=== PATIENT | male | born 1995 | race African-American/Black ===

== ENCOUNTER 2018-03-10 11:49 | Emergency (ER) | payer MEDICAID ==
[~2018-03-10] VITALS: Ht 188 cm; Wt 120.0 kg
[2018-03-10 11:51] VITALS: BP 116/56; PULSE 54; RESP 18; TEMP 98.7; O2SAT 99
[2018-03-10] MEDS ORDERED: PRED20 PO (13:15)
[2018-03-10] MEDS ORDERED: VIST50CA PO (13:15)
--- NOTE | 2018-03-10 13:23 | PD ---
HPI Chief Complaint: Skin Problem Time Seen by Provider: 12:13 (Mackenzie Ferrer) Time Seen by Provider: 12:13 (Jumana Williamson MD) Travel History International Travel<30 days: No Contact w/Intl Traveler<30days: No Traveled to known affect area: No (Mackenzie Ferrer) History of Present Illness HPI 22 year-old male presents to the emergency room for evaluation of itchy rash to his bilateral elbows, legs, groin for the past 5 days. Patient does not remember what brought the symptoms on. He has not applied anything to the area. No recent new environmental, food, or medication exposures. He also reports painful lesions inside of his mouth and around his lips. He reports something similar as a child but does not remember what it was. He went to an urgent care yesterday and they recommended he go to a plastic surgery assistant. (Mackenzie Ferrer) PFSH Social History Tobacco Use: No (Mackenzie Ferrer) Allergies-Medications (Allergen,Severity, Reaction): Coded Allergies: No Known Allergies (Unverified , 03/10/18) Reported Meds & Prescriptions Reported Meds & Active Scripts Active Magic Mouthwash Pediatric/Adult Liq (Lidocaine/Diphenhydr/Alum/Mg/Simeth) 60 Ml Susp 5 Ml SWISH-SWAL ACHS Each 5mL contains: Diphenydramine 4.5mg, Viscous Lidocaine 2% 10mg, Maalox Advanced Regular Strength 2.7ml Vistaril (Hydroxyzine Pamoate) 50 Mg Cap 50 Mg PO TID PRN Prednisone 20 Mg Tab 40 Mg PO DAILY Take 40 mg (2 tablets) daily for 5 days (Jumana Williamson MD) Review of Systems Except as stated in HPI: all other systems reviewed are Neg (Mackenzie Ferrer) Physical Exam Narrative GENERAL: Well-nourished, well-developed male in no acute distress. Afebrile. Ambulatory. SKIN: Focused skin assessment warm/dry. Multiple less than 1 cm skin colored circular, slightly raised lesions to bilateral elbows, bilateral thighs, groin, and inside the mouth. HEAD: Normocephalic. EYES: No scleral icterus. No injection or drainage. NECK: Supple, trachea midline. No JVD or lymphadenopathy. CARDIOVASCULAR: Regular rate and rhythm without murmurs, gallops, or rubs. RESPIRATORY: Breath sounds equal bilaterally. No accessory muscle use. PSYCHIATRIC: No delusional thought processes. No hallucinations. GENITOURINARY: Uncircumcised. Testes descended bilaterally without evidence of rotation. No urethral discharge. Patient has multiple 1 cm raised lesions to his scrotum and on the penis with excoriated centers. (Mackenzie Ferrer) Data Data Last Documented VS Vital Signs Date Time Temp Pulse Resp B/P (MAP) Pulse Ox O2 Delivery O2 Flow Rate FiO2 03/10/18 11:51 98.7 54 18 116/56 (76) 99 (Jumana Williamson MD) Orders Orders Ed Discharge Order (03/10/18 13:31) (Jumana Williamson MD) MDM Medical Decision Making Medical Screen Exam Complete: Yes Emergency Medical Condition: Yes Medical Record Reviewed: Yes Differential Diagnosis Rash, tinea corporis, scabies, allergic reaction, viral exanthem Narrative Course 22-year-old male presents to the emergency room for evaluation of itchy rash to his arms and groin for the past several days. Patient denies any new exposures. He has not applied anything to the area. He is not sexually active. Physical exam reveals multiple less than 1 cm skin colored circular, slightly raised lesions to bilateral elbows, bilateral thighs, groin, and inside the mouth. Lesions in the mouth are painful. The rash does not appear to be bacterial or fungal in nature. Can be immunologic or viral. Patient will be treated empirically with prednisone and Vistaril. Told to follow-up with a plastic surgery assistant for skin scraping or return for worsening symptoms. He understands and agrees to plan. (Mackenzie Ferrer) Diagnosis Primary Impression: Rash and nonspecific skin eruption Referrals: Primary Care Physician Additional Instructions: Rest and drink plenty of fluids. Take prednisone as directed, until gone. Vistaril as directed, as needed for itching. Follow-up with a primary care physician. Return to the emergency room for worsening symptoms. Med/Other Pt SpecificInfo: Prescription(s) given (Mackenzie Ferrer) Scripts Ggnifshawvddnwa-Ktmqgubpe-Zzf-Alum-Simeth Liq (Magic Mouthwash Pediatric/Adult Liq) 60 Ml Susp 5 ML SWISH-SWAL ACHS for Mouth sores, #60 ML 0 Refills Each 5mL contains: Diphenydramine 4.5mg, Viscous Lidocaine 2% 10mg, Maalox Advanced Regular Strength 2.7ml Prov: Jumana Williamson MD 03/10/18 Hydroxyzine Pamoate (Vistaril) 50 Mg Cap 50 MG PO TID Y for ITCHING, #15 CAP 0 Refills Prov: Jumana Williamson MD 03/10/18 Prednisone (Prednisone) 20 Mg Tab 40 MG PO DAILY, #10 TAB 0 Refills Take 40 mg (2 tablets) daily for 5 days Prov: Jumana Williamson MD 03/10/18 Disposition: 01 DISCHARGE HOME Condition: Stable Mackenzie Ferrer Mar 10, 2018 13:23 Jumana Williamson MD Mar 10, 2018 14:03
[2018-03-10] MEDS ORDERED: MAGICPED SWISH-SWAL (13:36)
== END 2018-03-10 13:42 | disposition home or self-care (01) ==
LOC: NEPK 11:49
DX: R21 Rash and other nonspecific skin eruption (principal)
CPT/HCPCS: 99283